=== PATIENT | male | born 1980 | race Two or more races ===

== ENCOUNTER 2018-11-08 02:49 | Emergency (ER) ==
[2018-11-08 03:06] VITALS: BP 148/87; TEMP 96.8; BMI 24.3
--- NOTE | 2018-11-08 04:26 | ED.PDOC ---
General ED Provider: Dr. COURTNEY CHAO-ER Chief Complaint: Palpitations Stated Complaint: my heart was beating funny for just a few sec Time Seen by Physician: 02:55 Mode of Arrival: Walk-In Information Source: Patient Exam Limitations: No limitations Nursing and Triage Documentation Reviewed and Agree: Yes Does patient meet sepsis criteria?: No System Inflammatory Response Syndrome: Not Applicable Sepsis Protocol: For patient's 13 years and over: Temp is 96.8 and below OR 101 and greater Pulse >90 BPM Resp >20/minute Acutely Altered Mental Status Are patient's symptoms suggestive of a new infection, such as: -Pneumonia -Skin, Soft Tissue -Endocarditis -UTI -Bone, Joint Infection -Implantable Device -Acute Abdominal Infection -Wound Infection -Meningitis -Blood Stream Catheter Infection -Unknown Cardiovascular Complaint Exam - Palpitations Complaint/Exam Onset/Duration: a few sec Symptoms Are: Resolved Initial Severity: Mild Current Severity: None Character: Reports: Irregular Aggravating: Reports: None Alleviating: Reports: None Associated Signs and Symptoms: Denies: Lightheadedness, Dizziness, Syncope, Chest pain, Shortness of breath, Diaphoresis, Nausea, Vomiting Atrial Fibrillation Risk Factors: Reports: None Thyroid Exam: Normal Quality Indicator For Non-Traumatic Chest Pain/Syncope: EKG Performed Review of Systems - Review Of Systems Constitutional: Reports: No symptoms Eyes: Reports: No symptoms Ears, Nose, Mouth, Throat: Reports: No symptoms Respiratory: Reports: No symptoms Cardiac: Reports: Palpitations GI: Reports: No symptoms : Reports: No symptoms Musculoskeletal: Reports: No symptoms Skin: Reports: No symptoms Neurological: Reports: No symptoms Endocrine: Reports: No symptoms Hematologic/Lymphatic: Reports: No symptoms All Other Systems: Reviewed and Negative Past Medical History - Past Medical History Previously Healthy: Yes Endocrine: Reports: Unknown Cardiovascular: Reports: Unknown Respiratory: Reports: Unknown Hematological: Reports: Unknown Gastrointestinal: Reports: Unknown Genitourinary: Reports: Unknown Neuro/Psych: Reports: Unknown Musculoskeletal: Reports: Unknown Cancer: Reports: Unknown - Surgical History General Surgical History: Reports: Unknown - Family History Family History: Reports: Unknown - Social History Smoking Status: Never smoker Hx Substance Use: No Alcohol Screening: None - Immunizations Tetanus Shot up to Date: No Physical Exam - Physical Exam Appearance: Well-appearing, No pain distress, Well-nourished Eyes: SUSAN, EOMI, Conjunctiva clear ENT: Ears normal, Nose normal, Oropharynx normal Neck: Supple Respiratory: Airway patent, Breath sounds clear, Breath sounds equal, Respirations nonlabored Cardiovascular: RRR, Pulses normal, No rub, No murmur GI/: Soft Musculoskeletal: Normal strength Skin: Warm, Dry, Normal color Neurological: Sensation intact, Motor intact, Reflexes intact, Cranial nerves intact, Alert, Oriented Psychiatric: Affect appropriate, Mood appropriate Interpretation - EKG Interpretation Time of EKG #1: 04:26 Rate: Normal Rhythm: Sinus Ectopy: None [place]: NL ST Segment: Normal Interpretation: nsr Critical Care Note - Critical Care Note Total Time (mins): 0 Course - Course Hematology/Chemistry: 11/08/18 03:25 11/08/18 03:25 Orders, Labs, Meds: Lab Review 11/08/18 11/08/18 11/08/18 03:20 03:25 03:25 WBC 6.36 RBC 4.86 Hgb 14.3 Hct 42.7 MCV 87.9 MCH 29.4 MCHC 33.5 RDW Coeff of Kaity 12.4 Plt Count 183 Immature Gran % (Auto) 0.3 Neut % (Auto) 45.1 Lymph % (Auto) 41.0 [place] % (Auto) 9.4 Eos % (Auto) 3.6 Baso % (Auto) 0.6 Immature Gran # (Auto) 0.0 Neut # (Auto) 2.9 Lymph # (Auto) 2.6 [place] # (Auto) 0.6 Eos # (Auto) 0.2 Baso # (Auto) 0.0 Sodium 136.6 Potassium 4.10 Chloride 101.7 Carbon Dioxide 24.6 Anion Gap 14.40 BUN 15.8 Creatinine 1.04 Estimated GFR (MDRD) 80.00 BUN/Creatinine Ratio 15.19 Glucose 108.7 H Calcium 9.33 Total Bilirubin 0.76 AST 32.0 ALT 21.1 Alkaline Phosphatase 36.3 L Total Creatine Kinase CK-MB (CK-2) CK-MB (CK-2) % Troponin I Total Protein 7.68 Albumin 4.85 Globulin 2.83 Albumin/Globulin Ratio 1.71 TSH 3.850 Free T4 1.48 Urine Color Urine Clarity Urine pH Ur Specific [place] Urine Protein Urine Glucose (UA) Urine Ketones Urine Blood Urine Nitrite Urine Bilirubin Urine Urobilinogen Ur Leukocyte Esterase Urine Opiates Screen Ur Oxycodone Screen Urine Methadone Screen Ur Propoxyphene Screen Ur Barbiturates Screen U Tricyclic Antidepress Ur Phencyclidine Scrn Ur Amphetamine Screen U Methamphetamines Scrn U Benzodiazepines Scrn Urine Cocaine Screen U Cannabinoids Screen 11/08/18 11/08/18 11/08/18 03:25 03:30 03:30 WBC RBC Hgb Hct MCV MCH MCHC RDW Coeff of Kaity Plt Count Immature Gran % (Auto) Neut % (Auto) Lymph % (Auto) [place] % (Auto) Eos % (Auto) Baso % (Auto) Immature Gran # (Auto) Neut # (Auto) Lymph # (Auto) [place] # (Auto) Eos # (Auto) Baso # (Auto) Sodium Potassium Chloride Carbon Dioxide Anion Gap BUN Creatinine Estimated GFR (MDRD) BUN/Creatinine Ratio Glucose Calcium Total Bilirubin AST ALT Alkaline Phosphatase Total Creatine Kinase 119.3 CK-MB (CK-2) 0.698 CK-MB (CK-2) % 0.5800 Troponin I < 0.012 Total Protein Albumin Globulin Albumin/Globulin Ratio TSH Free T4 Urine Color Yellow Urine Clarity Clear Urine pH 5.5 Ur Specific [place] 1.025 Urine Protein Negative Urine Glucose (UA) Negative Urine Ketones Negative Urine Blood Negative Urine Nitrite Negative Urine Bilirubin Negative Urine Urobilinogen 0.2 Ur Leukocyte Esterase Negative Urine Opiates Screen Negative Ur Oxycodone Screen Negative Urine Methadone Screen Negative Ur Propoxyphene Screen Negative Ur Barbiturates Screen Negative U Tricyclic Antidepress Negative Ur Phencyclidine Scrn Negative Ur Amphetamine Screen Negative U Methamphetamines Scrn Negative U Benzodiazepines Scrn Negative Urine Cocaine Screen Negative U Cannabinoids Screen Negative Orders Category Date Time Status EKG-(ED ONLY) Stat CARDIO 11/08/18 03:14 Ordered Dispute Resolution Analyst [ED SQL SERVER DEVELOPER APPLIED] .ONCE EMERGENCY 11/08/18 03:15 Active CBC W/ AUTO DIFF Stat LAB 11/08/18 03:25 Completed COMPREHENSIVE METABOLIC PANEL Stat LAB 11/08/18 03:25 Completed CREATINE KINASE Stat LAB 11/08/18 03:25 Completed DRUG SCREEN, URINE, RAPID Stat LAB 11/08/18 03:30 Completed FREE T4 (FREE THYROXINE) Stat LAB 11/08/18 03:20 Completed TROPONIN I Stat LAB 11/08/18 03:25 Completed TSH [THYROID STIMULATING HORMONE] Stat LAB 11/08/18 03:25 Completed URINALYSIS C & S IF INDICATED Stat LAB 11/08/18 03:30 Completed Vital Signs: Temp Pulse Resp BP Pulse Ox 11/08/18 02:51 96.8 F L 81 18 148/87 H 99 LITO Risk Score LITO Risk Score: Risk Score Odds of by 30D 0 0.1 (0.1-0.2) 1 0.3 (0.2-0.3) 2 0.4 (0.3-0.5) 3 0.7 (0.6-0.9) 4 1.2 (1.0-1.5) 5 2.2 (1.9-2.6) 6 3.0 (2.5-3.6) 7 4.8 (3.8-6.1) Departure - Departure Time of Disposition: 04:25 Disposition: HOME SELF-CARE Discharge Problem: Palpitations Instructions: Heart Palpitations (ED) Condition: Good Pt referred to PMD for follow-up: Yes IPMP verified?: No Additional Instructions: f/u with pcp--avoid caffeine or other stimulatnts Allergies/Adverse Reactions: Allergies No Known Drug Allergies Adverse Reaction (Verified 11/08/18 02:57) Home Medications: Ambulatory Orders 1 [No Reported Medications] 11/08/18 Disposition Discussed With: Patient
== END 2018-11-08 04:31 | disposition home or self-care (01) ==
LOC: ED 02:49
DX: R00.2 Palpitations (principal)
CPT/HCPCS: 36415; 80053; 80306; 81001; 82550; 82553; 84439; 84443; 84484; 85025; 93005; 93010; 99283